=== PATIENT | male | born 1990 | race Caucasian/White ===

== ENCOUNTER 2019-01-25 17:39 | Emergency (ER) | payer OTHER ==
[2019-01-25] MEDS ORDERED: MELOXICAM 7.5 MG TABLET PO STA (20:46)
[2019-01-25] MEDS ORDERED: CYCLOBENZAPRINE 10 MG TABLET PO STA (20:46)
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
[2019-01-25 21:02] VITALS: BP 135/83
== END 2019-01-25 21:02 | disposition home or self-care (01) ==
LOC: ED 17:39
DX: M54.2 Cervicalgia (principal); M54.9 Dorsalgia, unspecified; V43.52XA Car driver injured in collision with other type car in traffic accident, initial encounter
CPT/HCPCS: 99283; A9270